=== PATIENT | female | born 1945 | race Caucasian/White ===

== ENCOUNTER 2016-09-08 13:58 | Outpatient (CLI) | payer MEDICARE, OTHER | END 2016-09-08 13:59 | disposition home or self-care (01) | DX: M76.72 Peroneal tendinitis, left leg (principal); M72.2 Plantar fascial fibromatosis; M76.62 Achilles tendinitis, left leg ==

== ENCOUNTER 2016-10-10 08:00 | Outpatient (CLI) | payer MEDICARE, OTHER | END 2016-10-10 08:01 | disposition home or self-care (01) | DX: E03.9 Hypothyroidism, unspecified (principal) ==

== ENCOUNTER 2016-10-24 08:00 | Outpatient (CLI) | payer MEDICARE, OTHER | END 2016-10-24 23:59 | disposition home or self-care (01) | DX: K52.9 Noninfective gastroenteritis and colitis, unspecified (principal) ==

== ENCOUNTER 2016-11-28 16:57 | Outpatient (CLI) | payer MEDICARE, OTHER | END 2016-11-28 16:58 | disposition home or self-care (01) | DX: M19.072 Primary osteoarthritis, left ankle and foot (principal) ==

== ENCOUNTER 2017-04-12 12:48 | Outpatient (CLI) | payer MEDICARE, OTHER ==
--- NOTE | 2017-04-13 10:13 | DEXA Report ---
DEXA: 04/12/2017 CLINICAL INDICATION: Pain, scoliosis. TECHNIQUE: Dual energy x-ray absorptiometry (DXA) was performed on a Gorsh system. Regions measured are the AP spine, femoral neck, and, if needed, forearm. COMPARISON: None. In accordance with the International Society for Clinical Densitometry (ISCD) guidelines, data from previous exams may be reanalyzed using current recommendations and techniques. This is done to allow a more accurate basis for comparison with the current study. FINDINGS: The data for the lumbar spine is as follows: REGION BMD (g/cm/cm) T-SCORE Z-SCORE L1 0.721 -3.4 -1.3 L2 1.079 -1.0 1.1 L3 1.247 0.4 2.5 L4 1.085 -1.0 1.1 TOTAL 1.041 -1.2 0.9 NOTE: All evaluable vertebrae are used for classification. The data for the hip is as follows: REGION BMD (g/cm/cm) T-SCORE Z-SCORE Neck 0.602 -3.1 -1.2 TOTAL 0.634 -3.0 -1.2 NOTE: The femoral neck or total proximal femur, whichever is lowest, is used for classification. IMPRESSION: THE WHO CLASSIFICATION BASED ON THE INTERNATIONAL REFERENCE STANDARD IS OSTEOPOROSIS. THE FRACTURE RISK IS HIGH. RECOMMENDATION: Patients with diagnosis of osteoporosis or osteopenia should have regular bone mineral density assessment. For those eligible for Medicare, routine testing is allowed once every 2 years. Testing frequency can be increased for patients who have rapidly progressing disease or for those who are receiving medical therapy to restore bone mass. COMMENT: World Health Organization (WHO) definitions for osteoporosis and osteopenia: NORMAL BMD: T-score at -1.0 or higher, fracture risk is low. OSTEOPENIA BMD: T-score between -1.0 and -2.5, fracture risk is increased. OSTEOPOROSIS BMD: T-score at -2.5 or lower, fracture risk high. National Osteoporosis Foundation recommends: 1. Obtain adequate dietary calcium (at least 1200 mg per day) and vitamin D (400 -800 international units per day). 2. Participate, as appropriate, in regular weightbearing and muscle- strengthening exercise. 3. Avoid tobacco use and reduce alcohol and caffeine intake. 4. For more detailed information see the website at www.NOF.org. MTDD
--- NOTE | 2017-04-13 11:15 | MRI Preliminary Report ---
Exam: MRI Thoracic Spine W/O IMPRESSION: 1. Spinal CORD, bones and marrow paraspinous soft tissues appear unremarkable. 2. Multilevel degenerative changes in the thoracic spine without evidence for abnormal bulge or protr usion. [facility] SITE ID: [id number]
--- NOTE | 2017-04-13 11:17 | MRI Report ---
EXAM: MRI THORACIC SPINE WITHOUT CONTRAST EXAM DATE: 04/12/2017 03:20 PM. CLINICAL HISTORY: BACK PAIN, LUMBAR SCOLIOSIS/OSTEOPOROSIS. COMPARISONS: None. TECHNIQUE: Multiplanar, multisequence T1-weighted and fluid-sensitive sequences of the thoracic spine from C7 to L1 without contrast. Other: None. FINDINGS: Spinal Cord: No signal abnormality in the visualized spinal cord. Alignment: Normal. No scoliosis or spondylolisthesis. Bone Marrow: No gross fractures or bone lesion. No bone marrow edema. Disk Levels/Facets: Multilevel disk space height loss. No focal protrusion. Disk space dehydration al so seen. C7-T1: Unremarkable. T1-T2: Unremarkable. T2-T3: Unremarkable. T3-T4: Unremarkable. T4-T5: Unremarkable. T5-T6: Unremarkable. T6-T7: Unremarkable. T7-T8: Unremarkable. T8-T9: Unremarkable. T9-T10: Unremarkable. T10-T11: Unremarkable. T11-T12: Unremarkable. T12-L1: Unremarkable. Musculature: Normal. No edema or fatty atrophy. Other: Significant esophageal dilatation is noted. This can be a sign of stenosis at the distal esoph tiarra-gastric junction. IMPRESSION: 1. Spinal CORD, bones and marrow paraspinous soft tissues appear unremarkable. 2. Multilevel degenerative changes in the thoracic spine without evidence for abnormal bulge or protr usion. [facility] Referring Provider Line: [phone] SITE ID: [id number]
--- NOTE | 2017-04-13 12:42 | MRI Report ---
EXAM: MRI LUMBAR SPINE WITHOUT CONTRAST EXAM DATE: 04/12/2017 03:24 PM. CLINICAL HISTORY: Back pain, lumbar scoliosis/osteoporosis. COMPARISON: 06/04/2015. TECHNIQUE: Multiplanar, multisequence T1-weighted and fluid-sensitive sequences of the lumbar spine f rom T12 to S1 without contrast. Other: None. FINDINGS: Spinal Cord: The conus terminates at L1. No signal abnormality in the visualized spinal cord. Alignment: 29.1 degrees levoscoliosis between L1-L2 and L3-L4. 12 mm right lateral listhesis at L1-L2. 13 mm left lateral listhesis at L3-L4. 4.6 mm anterolisthesis at L4-L5. Bone Marrow: Five [id number] lumbar vertebral bodies are assumed. Endplate sclerosis with some i ncreased T2 signal seen primarily at the center and right lateral aspect of L2-L3. Disk Levels/Facets: T12-L1: Mild broad-based disk bulge, some disk dehydration is seen. Prominent facets. L1-L2: Disk osteophyte complex at this level. Mild to moderate central stenosis. Prominent facets. Se heidi bilateral foraminal stenosis, similar to previous. L2-L3: Disk osteophyte complex, hypertrophic facets and ligamentum flavum. Moderate to severe central stenosis. Severe right foraminal stenosis secondary to intraforaminal disk extrusion on series 401 i mage 10. Stable since previous. L3-L4: Broad-based disk bulge is seen, hypertrophic facets and ligamentum flavum. Moderate to severe central stenosis, disk extends in the right neural foramen creating moderate right foraminal stenosis . Left neural foramen shows mild stenosis. L4-L5: Hypertrophic facets, broad-based bulge, short pedicles all combine to create severe central st enosis. Disk uncovering also seen secondary to anterolisthesis. Severe bilateral foraminal stenosis, also similar. L5-S1: Broad-based disk bulge is noted. This extends to the neural foramina bilaterally and displaces both exiting L5 roots without flattening or deformity. This configuration is about the same as seen previous. Musculature: Moderate fatty atrophy of multifidus muscle is seen. Other: The visualized pelvic cavity is unremarkable. IMPRESSION: 1. Cord terminates at L1. No abnormal cord signal. 2. 29.1 degrees levoscoliosis between L1-L2 and L3-L4. 12 mm right lateral listhesis at L1-L2. 13 mm left lateral listhesis at L3-L4. 4.6 mm anterolisthesis at L4-L5. Moderate fatty atrophy and multifid us muscle is seen. Endplate sclerosis with some increased T2 signal at the central and right lateral aspect of L2-L3. 3. L1-L2 shows disk osteophyte complex at this level, mild to moderate central stenosis. Severe bilat eral foraminal stenosis. Similar to previous. 4. L2-L3 shows disk osteophyte complex, hypertrophic facets and ligamentum flavum. Moderate central s tenosis and severe right foraminal stenosis secondary to intraforaminal disk extrusion. Stable. 5. L3-L4 shows a broad-based bulge, hypertrophic facets. Hypertrophic ligamentum flavum. Moderate to severe central stenosis extending into the right neural foramen creating moderate right foraminal lamin nosis. Left neural foramen shows mild stenosis. 6. L4-L5 shows a broad-based bulge and short pedicles combining to create severe central stenosis. Di sk uncovering secondary to anterolisthesis. Severe bilateral foraminal stenosis. Stable. 7. L5-S1 shows broad-based disk bulge, extending into the neural foramina bilaterally displacing both exiting L5 roots without flattening or deformity. Mild central stenosis. Also stable. Comment: The following findings are so common in adults without low back pain that while we report th eir presence, they must be interpreted with caution and in the context of the clinical situation. (Re allen Ford et al, Spine 2001) Prevalence of findings in patients without low back pain: Disk degeneration (any evidence): 92% Disk desiccation/T2 signal loss: 83% Disk height loss: 56% Disk bulge: 64% Disk protrusion: 32% Annular tear/high intensity zone: 38% [facility] Referring Provider Line: [phone] SITE ID: [id number]
== END 2017-04-12 12:49 | disposition home or self-care (01) ==
LOC: DI 12:48
PROVIDERS: ATTEND Physician Assistant Medical
DX: M81.0 Age-related osteoporosis without current pathological fracture (principal); M51.34 Other intervertebral disc degeneration, thoracic region; M51.26 Other intervertebral disc displacement, lumbar region; M51.36 Other intervertebral disc degeneration, lumbar region; M43.16 Spondylolisthesis, lumbar region; M47.896 Other spondylosis, lumbar region
CPT/HCPCS: 72146; 72148; 77080

== ENCOUNTER 2017-05-09 07:52 | Outpatient (CLI) | payer MEDICARE, OTHER ==
--- NOTE | 2017-05-09 12:09 | MRI Report ---
EXAM: LEFT KNEE MRI WITHOUT CONTRAST EXAM DATE: 05/09/2017 08:32 AM. CLINICAL HISTORY: Left knee pain. COMPARISON: None. TECHNIQUE: Multiplanar, multisequence T1-weighted and fluid-sensitive sequences of the knee without c ontrast. Other: None. FINDINGS: Bones and Articular Cartilage: No acute fracture or bone lesions. Grade 2 chondromalacia at the media l compartment. Tiny 2 mm focus of articular cartilage delamination injury at the posterior weightbear ing aspect of the lateral femoral condyle. Grade 2-3 chondromalacia at the posterior aspect of the la teral tibial plateau. Medial Meniscus: Horizontal tear extending through the inferior articular surface at the posterior ho rn. Small 4 x 2 mm perimeniscal cyst adjacent to the posterior aspect of the posterior horn. Lateral Meniscus: Horizontal tear extending from the anterior horn to the body/posterior horn junctio n of the lateral meniscus. Cruciate Ligaments: The anterior and posterior cruciate ligaments are intact. Collateral Ligaments: The medial collateral and lateral collateral ligamentous structures are intact. Tendons: The quadriceps, patellar, semimembranosus, and popliteus tendons are unremarkable. Musculature: No edema or fatty atrophy. Other: Very small joint effusion. Small to moderate-sized Gonzalez's cyst. No loose bodies. The medial and lateral retinacula are intact. The subcutaneous tissues and fat pads are unremarkable. IMPRESSION: 1. Chondromalacia at the medial and lateral compartments. 2. Horizontal tear at the posterior horn medial meniscus. Small perimeniscal cyst adjacent to the pos terior horn. 3. Horizontal tear within the lateral meniscus as described above. 4. Very small joint effusion and small to moderate-sized Gonzalez's cyst. [facility] MUSCULOSKELETAL RADIOLOGY SECTION Referring Provider Line: [phone] SITE ID: [id number]
--- NOTE | 2017-05-09 13:10 | MRI Report ---
EXAM: RIGHT KNEE MRI WITHOUT CONTRAST EXAM DATE: 05/09/2017 09:01 AM. CLINICAL HISTORY: Right knee pain and decreased range of motion. COMPARISON: None. TECHNIQUE: Multiplanar, multisequence T1-weighted and fluid-sensitive sequences of the knee without c ontrast. Other: None. FINDINGS: Bones and Articular Cartilage: Grade 2 chondromalacia at the medial and lateral femoral condyles. Tin y subcortical cyst at the median ridge of the patella. No acute fracture or bone lesions. Normal raza ow signal. Medial Meniscus: Degenerative signal within the posterior horn. No tear. Lateral Meniscus: Small focal horizontal tear within the inner third of the posterior horn. Cruciate Ligaments: The anterior and posterior cruciate ligaments are intact. Collateral Ligaments: The medial collateral and lateral collateral ligamentous structures are intact. Tendons: The quadriceps, patellar, semimembranosus, and popliteus tendons are unremarkable. Musculature: No edema or fatty atrophy. Other: No effusion. Small Gonzalez's cyst. No loose bodies. The medial and lateral retinacula are intac t. The subcutaneous tissues and fat pads are unremarkable. IMPRESSION: 1. Grade 2 chondromalacia at the femoral condyles. 2. Degenerative signal within the posterior horn medial meniscus. No tear. 3. Small focal horizontal tear within the inner third of the posterior horn lateral meniscus. 4. Small Gonzalez's cyst. [facility] MUSCULOSKELETAL RADIOLOGY SECTION Referring Provider Line: [phone] SITE ID: [id number]
== END 2017-05-09 07:53 | disposition home or self-care (01) ==
LOC: DI 07:52
PROVIDERS: ATTEND Orthopaedic Surgery
DX: M94.262 Chondromalacia, left knee (principal); M94.261 Chondromalacia, right knee; S83.242A Other tear of medial meniscus, current injury, left knee, initial encounter; S83.282A Other tear of lateral meniscus, current injury, left knee, initial encounter; S83.281A Other tear of lateral meniscus, current injury, right knee, initial encounter; M71.22 Synovial cyst of popliteal space [Baker], left knee; M71.21 Synovial cyst of popliteal space [Baker], right knee

== ENCOUNTER 2017-06-15 14:07 | Outpatient (CLI) | payer MEDICARE, OTHER | END 2017-06-15 14:08 | disposition home or self-care (01) | LOC: LAB.R 14:07 | PROVIDERS: ATTEND Internal Medicine Gastroenterology | DX: K52.9 Noninfective gastroenteritis and colitis, unspecified (principal) | CPT/HCPCS: 87493 ==

== ENCOUNTER 2017-11-18 04:44 | Outpatient (CLI) | payer MEDICARE, OTHER | END 2017-11-18 04:45 | disposition critical access hospital (66) | LOC: EMS 04:44 | PROVIDERS: ATTEND Surgery | DX: R03.0 Elevated blood-pressure reading, without diagnosis of hypertension (principal); R51 Headache; R41.0 Disorientation, unspecified | CPT/HCPCS: A0425; A0427 ==

== ENCOUNTER 2017-11-18 05:23 | Emergency (ER) | payer MEDICARE, OTHER ==
[2017-11-18 06:54] LABS: BILIRUBIN,URINE NEGATIVE (NEGATIVE); CLARITY,URINE CLEAR (CLEAR); GLUCOSE, URINE (UA) NEGATIVE (NEGATIVE); KETONES,URINE (UA) NEGATIVE (NEGATIVE); LEUKOCYTE ESTERASE, URINE NEGATIVE (NEGATIVE); NITRITE,URINE NEGATIVE (NEGATIVE); OCCULT BLOOD,URINE NEGATIVE (NEGATIVE); PROTEIN,URINE NEGATIVE (NEGATIVE); UROBILINOGEN,URINE 0.2 (NORMAL) E.U./dL (NORMAL)
[2017-11-18 07:24] LABS: BASOPHILS # (AUTO) 0.1 10^3/uL (0.0-0.1); BASOPHILS % (AUTO) 0.7 %; EOSINOPHILS # (AUTO) 0.2 10^3/uL (0.0-0.7); HGB - HEMOGLOBIN 14.3 g/dL (12.0-16.0); LYMPHOCYTES # (AUTO) 1.5 10^3/uL (1.5-3.5); LYMPHOCYTES % (AUTO) 20.3 %; MEAN CORPUSCULAR HEMOGLOBIN 34.2 pg (27.0-31.0); MEAN CORPUSCULAR VOLUME 97.8 fL (81.0-99.0); MEAN PLATELET VOLUME 7.4 fL (7.9-10.8); MONOCYTES # (AUTO) 0.6 10^3/uL (0.0-1.0); NEUTROPHILS # (AUTO) 5.2 10^3/uL (1.5-6.6); PLT - PLATELET COUNT 326 10^3/uL (130-450); RED BLOOD COUNT 4.19 10^6/uL (4.20-5.40); WHITE BLOOD COUNT 7.6 x10^3/uL (4.8-10.8)
--- NOTE | 2017-11-18 07:27 | ED Physician Documentation ---
History of Present Illness - Stated complaint Stated Complaint: MARIN, CONFUSION - Chief complaint Chief Complaint: General - History obtained from History obtained from: Patient, EMS - History of Present Illness Timing: How many days ago (3) Pain level max: 8 Pain level now: 8 Improved by: nothing Worsened by: everything - Additonal information Additional information: 72 year old female had a dental bridge removed 3 days ago at [facility]. States is currently prescribed vicodin and azithromycin. States that they didn' t make her feel well, so stopped them. She contacted her dentist and told him she was stopping the abx, states "he wasn't thrilled about it, but wants to see me tomorrow before starting anything else". States she is still not feeling well. States her blood pressure is higher than usual. Also takes tramadol, xanax and gabapentin for chronic pain. Also states she has had some chest pressure over the past few days. Review of Systems Ten Systems: 10 systems reviewed and negative Constitutional: denies: Fever, Chills Nose: denies: Rhinorrhea / runny nose, Congestion Throat: denies: Sore throat Cardiac: reports: Chest pain / pressure (states felt chest pressure a few days ago, none now.), Palpitations Respiratory: denies: Cough GI: reports: Nausea. denies: Vomiting Skin: denies: Rash Musculoskeletal: denies: Neck pain, Back pain Neurologic: denies: Confused (patient states that she is not confused. unclear where that complaint came from.) Psychiatric: reports: Anxiety PD PAST MEDICAL HISTORY - Past Medical History Past Medical History: Yes Cardiovascular: Hypertension Neuro: Peripheral neuropathy Endocrine/Autoimmune: HyPOthyroidism GI: Other Psych: Anxiety Musculoskeletal: Chronic back pain - Past Surgical History Past Surgical History: Yes General: Appendectomy /MANAGER DEMAND: Tubal ligation HEENT: Tonsil/Adenoidectomy - Present Medications Home Medications: Ambulatory Orders Medication Instructions Recorded Confirmed Acetaminophen [Children's Pain & 160 mg PO 03/26/13 03/26/13 Fever] Gabapentin 600 mg PO BID 01/23/16 01/23/16 Levothyroxine [Synthroid] 01/23/16 Omeprazole [PriLOSEC] 20 mg PO DAILY 01/23/16 01/23/16 Ondansetron Odt [Zofran] 4 mg TL Q6H PRN #10 tablet 01/24/16 Liothyronine Sodium 5 mcg PO DAILY 11/18/17 11/18/17 Losartan [Cozaar] 50 mg PO DAILY 11/18/17 11/18/17 - Allergies Allergies/Adverse Reactions: Allergies Allergy/AdvReac Type Severity Reaction Status Date / Time diclofenac sodium * Allergy Nausea Verified 11/18/17 05:36 [From Voltaren] nickel [Nickel] Allergy Rash Verified 11/18/17 05:36 Penicillins Allergy tingling Verified 11/18/17 05:36 lips epinephrine AdvReac heart Verified 11/18/17 05:36 pounding - Social History Does the pt smoke?: No Smoking Status: Never smoker Does the pt drink ETOH?: Yes Does the pt have substance abuse?: No - Immunizations Immunizations are current?: Yes PD ED PE NORMAL - Vitals Vital signs reviewed: Yes - General General: Alert and oriented X 3, No acute distress - HEENT HEENT: PERRL, Ears normal, Moist mucous membranes, Pharynx benign, Other (s/p tooth extraction upper R jaw. no signs of infection.) - Neck Neck: Supple, no meningeal sign - Cardiac Cardiac: RRR, Strong equal pulses - Respiratory Respiratory: No respiratory distress, Clear bilaterally - Abdomen Abdomen: Soft, Non tender, Non distended - Derm Derm: Warm and dry - Extremities Extremities: No edema, No calf tenderness / cord - Neuro Neuro: Alert and oriented X 3, puller through 2-12 intact, No motor deficit, No sensory deficit - Psych Psych: Normal mood, Normal affect Results - Vitals Vitals: Vital Signs - 24 hr 11/18/17 11/18/17 11/18/17 05:31 07:36 08:31 Temperature 36.7 C 36.2 C L Heart Rate 79 83 102 H Respiratory 16 16 24 Rate Blood Pressure 142/79 H 129/85 H 114/73 O2 Saturation 97 100 99 Oxygen O2 Source Room air - EKG (time done) 0740 Rate: Rate (enter#) (76) Rhythm: NSR [place]: Normal Intervals: Normal [place] QRS: Normal Ischemia: Other (borderline ST elevation V2-3) - Labs Labs: Laboratory Tests 11/18/17 11/18/17 11/18/17 05:55 07:17 07:17 WBC 7.6 RBC 4.19 L Hgb 14.3 Hct 41.0 MCV 97.8 MCH 34.2 H MCHC 35.0 RDW 12.0 Plt Count 326 MPV 7.4 L Neut # 5.2 Lymph # 1.5 [place] # 0.6 Eos # 0.2 Baso # 0.1 Absolute Nucleated RBC 0.00 Nucleated RBC % 0.0 Sodium 135 Potassium 3.9 Chloride 98 L Carbon Dioxide 26 Anion Gap 11.0 BUN 9 Creatinine 0.6 Estimated GFR (MDRD) 99 Glucose 99 Calcium 9.8 Total Bilirubin 0.8 AST 34 ALT 23 Alkaline Phosphatase 59 Troponin I Total Protein 7.4 Albumin 4.6 Globulin 2.8 Albumin/Globulin Ratio 1.6 Lipase 19 L Urine Color YELLOW Urine Clarity CLEAR Urine pH 7.0 Ur Specific [place] <=1.005 Urine Protein NEGATIVE Urine Glucose (UA) NEGATIVE Urine Ketones NEGATIVE Urine Occult Blood NEGATIVE Urine Nitrite NEGATIVE Urine Bilirubin NEGATIVE Urine Urobilinogen 0.2 (NORMAL) Ur Leukocyte Esterase NEGATIVE Ur Microscopic Review NOT INDICATED Urine Culture Comments NOT INDICATED 11/18/17 07:17 WBC RBC Hgb Hct MCV MCH MCHC RDW Plt Count MPV Neut # Lymph # [place] # Eos # Baso # Absolute Nucleated RBC Nucleated RBC % Sodium Potassium Chloride Carbon Dioxide Anion Gap BUN Creatinine Estimated GFR (MDRD) Glucose Calcium Total Bilirubin AST ALT Alkaline Phosphatase Troponin I 3.99 H* Total Protein Albumin Globulin Albumin/Globulin Ratio Lipase Urine Color Urine Clarity Urine pH Ur Specific [place] Urine Protein Urine Glucose (UA) Urine Ketones Urine Occult Blood Urine Nitrite Urine Bilirubin Urine Urobilinogen Ur Leukocyte Esterase Ur Microscopic Review Urine Culture Comments - Rads (name of study) cxr Radiology: Prelim report reviewed, EMP read contemporaneously, See rad report ( no acute disease) PD MEDICAL DECISION MAKING - ED course Complexity details: reviewed results, re-evaluated patient, considered differential, d/w patient, d/w workforce consultant (Dr. Yanez (cardiology at [facility]) graciously accepts in transfer. 0900) ED course: Patient is a 72-year-old female who presents to the emergency department mainly complaining of dental pain, but also noted her blood pressure was high over the past few days and did have some chest pressure. Initially did not complain of any chest pain with EMS or upon initial arrival to the emergency department. An EKG was then performed and laboratory testing performed. Troponin came back elevated at 3.99. No chest pain in the ED. Started on a heparin drip, given aspirin and will transfer to [facility] in [place] for further care of her NSTEMI. She has seen Dr. Nguyen, cardiology in the past. Does not have any cardiac history or stents. [facility] contacted at [phone]. This document was made in part using voice recognition software. While efforts are made to proofread this document, sound alike and grammatical errors may occur. Departure - Departure Disposition: 02 Transfer Acute Care Hosp Clinical Impression: NSTEMI (non-ST elevated myocardial infarction) Condition: Stable
[2017-11-18 07:37] LABS: ALBUMIN 4.6 g/dL (3.2-5.5); ALBUMIN/GLOBULIN RATIO 1.6 (1.0-2.2); BILIRUBIN,TOTAL 0.8 mg/dL (0.2-1.0); CALCIUM 9.8 mg/dL (8.5-10.3); CREATININE 0.6 mg/dL (0.4-1.0); TOTAL PROTEIN 7.4 g/dL (6.7-8.2)
[2017-11-18] MEDS ORDERED: SODIUM CHLORIDE 0.9% 1,000 ML IV ONE (07:45)
[2017-11-18] MEDS ORDERED: HEPARIN 25000UNITS/500ML (D5W) 25,000 UNIT/500 ML BAG IV STA (07:53)
[2017-11-18] MEDS ORDERED: HEPARIN 5,000 UNIT/ML VIAL IVP ONE (07:53)
[2017-11-18] MEDS: ASPIRIN CHEW 81 MG TABLET PO STA (08:14)
--- NOTE | 2017-11-18 08:33 | XRAY Preliminary Report ---
Exam: XR CHEST 1 VIEW X-RAY IMPRESSION: 1. Rotated frontal projection chest film with mild hyperaeration, decreased compared to prior study f rom 2014. No focal consolidation. No definite acute abnormality seen. 2. Exam otherwise as above. [facility] SITE ID: [id number]
--- NOTE | 2017-11-18 08:34 | XRAY Report ---
EXAM: CHEST RADIOGRAPHY EXAM DATE: 11/18/2017 08:18 AM. CLINICAL HISTORY: Chest pain. COMPARISON: Chest x-ray 03/18/2015. CT 10/22/2015.. TECHNIQUE: 1 view. FINDINGS: Rotated frontal projection examination. Lungs/Pleura: Deep inspiratory volume with less hyperaeration than seen on prior study. No focal opac ities evident. No pleural effusion. No pneumothorax. Mediastinum: Within exam limitations, the cardiomediastinal contour is normal. Other: Thoracic scoliosis and degenerative change once again seen. No acute bone abnormality. IMPRESSION: 1. Rotated frontal projection chest film with mild hyperaeration, decreased compared to prior study f rom 2014. No focal consolidation. No definite acute abnormality seen. 2. Exam otherwise as above. [facility] Referring Provider Line: [phone] SITE ID: [id number]
[2017-11-18 09:34] VITALS: BP 125/82
== END 2017-11-18 10:28 | disposition short-term general hospital (02) ==
LOC: EDUNIT# → ED 05:23
DX: I21.4 Non-ST elevation (NSTEMI) myocardial infarction (principal); I10 Essential (primary) hypertension; E03.9 Hypothyroidism, unspecified; G62.9 Polyneuropathy, unspecified
CPT/HCPCS: 36415; 71045; 80053; 81003; 83690; 84484; 85025; 93005; 96365; 96366; 96375; 99284; 99285; A9270; 81001; 87086

== ENCOUNTER 2017-11-18 10:16 | Outpatient (CLI) | payer MEDICARE, OTHER | END 2017-11-18 10:17 | disposition short-term general hospital (02) | LOC: EMS 10:16 | PROVIDERS: ATTEND Surgery | DX: R07.9 Chest pain, unspecified (principal) | CPT/HCPCS: A0425; A0426 ==

== ENCOUNTER 2018-01-03 15:50 | Outpatient (CLI) | payer MEDICARE, OTHER | END 2018-01-03 15:51 | disposition home or self-care (01) | LOC: LAB.F 15:50 | PROVIDERS: ATTEND Physician Assistant Medical | DX: E03.9 Hypothyroidism, unspecified (principal) | CPT/HCPCS: 36415; 84443 ==

== ENCOUNTER 2018-10-16 15:12 | Outpatient (CLI) | payer MEDICARE, OTHER ==
[2018-10-16 18:11] LABS: BASOPHILS # (AUTO) 0.1 10^3/uL (0.0-0.1); EOSINOPHILS # (AUTO) 0.1 10^3/uL (0.0-0.7); EOSINOPHILS % (AUTO) 1.8 %; HGB - HEMOGLOBIN 14.6 g/dL (12.0-16.0); LYMPHOCYTES # (AUTO) 2.5 10^3/uL (1.5-3.5); LYMPHOCYTES % (AUTO) 35.2 %; MEAN CORPUSCULAR HEMOGLOBIN 34.4 pg (27.0-31.0); MEAN CORPUSCULAR HGB CONC 33.3 g/dL (32.0-36.0); MEAN CORPUSCULAR VOLUME 103.5 fL (81.0-99.0); MEAN PLATELET VOLUME 7.4 fL (7.9-10.8); MONOCYTES # (AUTO) 0.8 10^3/uL (0.0-1.0); MONOCYTES % (AUTO) 10.5 %; NEUTROPHILS # (AUTO) 3.7 10^3/uL (1.5-6.6); NEUTROPHILS % (AUTO) 51.5 %; PLT - PLATELET COUNT 408 10^3/uL (130-450); RED BLOOD COUNT 4.25 10^6/uL (4.20-5.40); RED CELL DISTRIBUTION WIDTH 12.7 % (12.0-15.0); WHITE BLOOD COUNT 7.2 x10^3/uL (4.8-10.8)
[2018-10-16 18:17] LABS: ALBUMIN 4.6 g/dL (3.2-5.5); ALBUMIN/GLOBULIN RATIO 1.5 (1.0-2.2); BILIRUBIN,TOTAL 0.6 mg/dL (0.2-1.0); CALCIUM 9.7 mg/dL (8.5-10.3); CREATININE 0.5 mg/dL (0.4-1.0); TOTAL PROTEIN 7.6 g/dL (6.7-8.2)
== END 2018-10-16 15:13 | disposition home or self-care (01) ==
LOC: LAB.F 15:12
PROVIDERS: ATTEND Physician Assistant Medical
DX: I10 Essential (primary) hypertension (principal); E03.9 Hypothyroidism, unspecified
CPT/HCPCS: 36415; 80053; 84443; 85025

== ENCOUNTER 2018-11-03 17:07 | Outpatient (CLI) | payer MEDICARE, OTHER | END 2018-11-03 17:08 | disposition short-term general hospital (02) | LOC: EMS 17:07 | PROVIDERS: ATTEND Surgery | DX: I10 Essential (primary) hypertension (principal); R53.1 Weakness; R53.83 Other fatigue; R23.2 Flushing; Z63.8 Other specified problems related to primary support group | CPT/HCPCS: A0425; A0427 ==

== ENCOUNTER 2018-11-18 09:36 | Outpatient (CLI) | payer MEDICARE, OTHER | END 2018-11-18 09:37 | disposition short-term general hospital (02) | LOC: EMS 09:36 | PROVIDERS: ATTEND Surgery | DX: I10 Essential (primary) hypertension (principal); R07.89 Other chest pain; R51 Headache; H93.19 Tinnitus, unspecified ear; F41.9 Anxiety disorder, unspecified | CPT/HCPCS: A0425; A0433 ==

== ENCOUNTER 2019-02-25 12:54 | Outpatient (CLI) | payer MEDICARE, OTHER ==
--- NOTE | 2019-02-26 07:09 | Ultrasound Report ---
Reason: ABDOMINAL BLOATING Procedure Date: 02/25/2019 Accession Number: [id number] / [id number] Procedure: US - Pelvic Complete CPT Code: FULL RESULT: EXAM: PELVIC ULTRASOUND EXAM DATE: 02/25/2019 02:00 PM. CLINICAL HISTORY: Abdominal pelvic bloating. COMPARISON: PELVIC W/TRANSVAGINAL 03/30/2016 3:43 PM. TECHNIQUE: Realtime transabdominal pelvic scan performed to identify the uterus and adnexa and as an overview of other pelvic structures, with static image documentation. Patient declined transvaginal imaging. FINDINGS: Uterus: 6.6 x 2.1 x 4.2 cm, volume 30 cc. Anteverted position. Normal overall size and echotexture. Masses: None. Endometrium: 6 mm. No masses or thickening. Cervix: Unremarkable. Right Ovary: Not visualized, likely obscured by bowel gas. Left Ovary: 1.4 x 1.2 x 1.2 cm, volume 1.0 cc. Normal echotexture and blood flow. Free Fluid: None. Other: None. IMPRESSION: 1. No adnexal mass identified. Right ovary likely obscured by bowel gas. 2. Uterus and endometrium within normal limits. [facility]
== END 2019-02-25 12:55 | disposition home or self-care (01) ==
LOC: DI 12:54
PROVIDERS: ATTEND Obstetrics & Gynecology
DX: R14.0 Abdominal distension (gaseous) (principal)
CPT/HCPCS: 76856